=== PATIENT | female | born 1950 | race Caucasian/White ===

== ENCOUNTER → 2022-08-22 09:15 | Outpatient (BNVA) | payer MEDICARE, OTHER, SELFPAY | PROVIDERS: PCP Nurse Practitioner Family; Visit Provider Physician Assistant | DX: Z13.89 Encounter for screening for other disorder (principal) ==

== ENCOUNTER → 2022-09-14 10:31 | Outpatient (BNVA) | payer MEDICARE, OTHER, SELFPAY | PROVIDERS: PCP Nurse Practitioner Family; Referring Provider Nurse Practitioner Family; Visit Provider Physician Assistant | DX: E66.9 Obesity, unspecified (principal); E03.9 Hypothyroidism, unspecified; E78.00 Pure hypercholesterolemia, unspecified; F32.A Depression, unspecified; G25.0 Essential tremor; I12.9 Hypertensive chronic kidney disease with stage 1 through stage 4 chronic kidney disease, or unspecified chronic kidney disease; N18.30 Chronic kidney disease, stage 3 unspecified; Z98.84 Bariatric surgery status; Z68.38 Body mass index [BMI] 38.0-38.9, adult | CPT/HCPCS: 99202 ==

== ENCOUNTER 2022-09-20 10:41 | Outpatient (REF) | payer MEDICARE, OTHER, SELFPAY ==
--- NOTE | ~2022-09-20 | XR_ITS ---
EXAMINATION: XR CHEST CLINICAL INFORMATION: Obesity. COMPARISON: None TECHNIQUE: 2 views of the chest were obtained. FINDINGS: Reverse total bilateral shoulder arthroplasties. The lungs are well expanded. Linear left basilar atelectasis. No dense consolidation. No pleural effusion or pneumothorax. Normal heart size. XR/XR chest 2V IMPRESSION: Linear left basilar atelectasis. Otherwise clear lungs.
--- NOTE | 2022-09-20 10:54 | ECG_ITS ---
Test Reason : E66.9 Obesity Blood Pressure : / mmHG Vent. Rate : 071 BPM Atrial Rate : 071 BPM P-R Int : 222 ms QRS Dur : 086 ms QT Int : 414 ms P-R-T Axes : 041 -17 000 degrees QTc Int : 449 ms Sinus rhythm with 1st degree A-V block Low voltage QRS Borderline ECG No previous ECGs available Referred By: Phoebe Wills Electronically Signed By:MARIUM DIOR
[2022-09-20 11:11] LABS: MANUAL DIFF FLAG NO
[2022-09-20 11:25] LABS: Basophils Absolute Auto 0.1 X10*3/uL (0.0-0.2); Basophils Percent Auto 0.9 % (0-2); Eosinophils Absolute Auto 0.2 X10*3/uL (0.0-0.4); Hematocrit 42.3 % (37.0-47.0); Hemoglobin 13.9 g/dl (12.0-16.0); Imm Gran Abs Auto 0.06 X10*3/uL (0.00-0.03); Imm Gran Pct Auto 0.7 % (0.0-0.4); Lymphocytes Absolute Auto 1.6 X10*3/uL (1.2-4.9); Lymphocytes Percent Auto 20.2 % (20-40); Mean Corpuscular HGB Conc 32.9 g/dl (31.0-35.0); Mean Corpuscular Hemoglobin 27.6 pg (27.0-33.0); Mean Corpuscular Volume 83.9 fL (80.0-98.0); Mean Platelet Volume 9.5 fL (9.4-12.3); Monocytes Absolute Auto 0.5 X10*3/uL (0.1-1.2); Monocytes Percent Auto 6.5 % (2-11); Neutrophils Absolute Auto 5.5 x10*3/uL (2.0-8.3); Neutrophils Percent Auto 68.7 % (45-73); Platelet Count 268 X10*3/uL (160-400); Red Blood Count 5.04 X10*6/uL (4.20-5.50); Red Cell Distribution Width 13.3 % (11.0-16.0); White Blood Count 8.1 X10*3/uL (4.8-10.8)
[2022-09-20 11:55] LABS: Estimated Average Glucose 117 mg/dL; Hemoglobin A1c % 5.7 %
[2022-09-20 12:10] LABS: Alanine Aminotransferase 17 U/L (0-31); Albumin Level 4.2 g/dL (3.5-5.0); Alkaline Phosphatase 84 U/L (39-117); Anion Gap 16 (12-20); Aspartate Amino Transferase 22 U/L (5-31); Bilirubin Total 0.7 mg/dL (0.0-1.0); Blood Urea Nitrogen 49 mg/dL (9-16); Calcium 9.5 mg/dL (8.4-10.2); Carbon Dioxide 26 mmol/L (22-29); Chloride 102 mmol/L (96-108); Cholesterol 193 mg/dL; Estimated Glomerular Filt Rate 28; Glucose Random 114 mg/dL (60-115); HDL Cholesterol 48 mg/dL; Iron 64 mcg/dL (30-160); LDL Cholesterol Calculated 130 mg/dl; Percent Iron Saturation 19 % (15-50); Potassium 4.7 mmol/L (3.3-5.1); Sodium 139 mmol/L (135-145); Total Iron Binding Capacity 342 mcg/dL (228-428); Total Protein 7.2 g/dL (6.5-8.0); Triglycerides 76 mg/dL; Unsaturated Iron Binding 278 ug/dL
[2022-09-20 12:34] LABS: Ferritin 32 ng/mL (10-250); Folate 12.6 ng/mL (> or = 4.0); Insulin 23 uU/mL (2-29); TSH reflex Free T4 3.16 uIU/mL (0.32-4.0); Vitamin B12 419 pg/mL (200-900); Vitamin D 25-OH Total 17.8 ng/mL (>30)
[2022-09-22 13:19] LABS: Calcium (PTHI) 9.3 mg/dL (8.6-10.4); PTHI 168 pg/mL (16-77)
[2022-09-25 04:09] LABS: Vitamin A 64 mcg/dL (38-98)
[2022-09-26 01:08] LABS: Zinc 61 mcg/dL (60-130)
[2022-09-26 14:29] LABS: Vitamin B1 9 nmol/L (8-30)
== END 2022-09-20 10:42 | disposition home or self-care (01) ==
LOC: HO.XRAY 10:41
PROVIDERS: PCP Nurse Practitioner Family; Visit Provider Physician Assistant
DX: Z01.818 Encounter for other preprocedural examination (principal); E66.9 Obesity, unspecified
CPT/HCPCS: 36415; 71046; 80053; 80061; 82306; 82607; 82728; 82746; 83036; 83525; 83540; 83970; 84425; 84443; 84590; 84630; 85025; 86140; 93005

== ENCOUNTER → 2022-10-05 08:45 | Outpatient (BNVA) | payer MEDICARE, OTHER, SELFPAY | PROVIDERS: PCP Nurse Practitioner Family; Referring Provider Nurse Practitioner Family; Visit Provider Physician Assistant | DX: Z11.0 Encounter for screening for intestinal infectious diseases (principal); E66.01 Morbid (severe) obesity due to excess calories; Z68.37 Body mass index [BMI] 37.0-37.9, adult | CPT/HCPCS: 83013; 99211; 99212 ==

== ENCOUNTER 2022-10-05 17:18 | Outpatient (REF) | payer MEDICARE, OTHER, SELFPAY ==
[2022-10-06 13:46] LABS: H Pylori Breath Test Negative (Negative)
== END 2022-10-05 17:19 | disposition home or self-care (01) ==
LOC: HO.LNP 17:18
PROVIDERS: Visit Provider Physician Assistant
DX: Z13.89 Encounter for screening for other disorder (principal)
CPT/HCPCS: 83013

== ENCOUNTER → 2022-10-10 09:39 | Outpatient (BNVA) | payer MEDICARE, OTHER, SELFPAY | PROVIDERS: PCP Nurse Practitioner Family; Visit Provider Dietitian, Registered | DX: E66.9 Obesity, unspecified (principal); N18.30 Chronic kidney disease, stage 3 unspecified; Z98.84 Bariatric surgery status | CPT/HCPCS: 97802 ==

== ENCOUNTER → 2022-10-13 10:42 | Outpatient (REF) | payer MEDICARE, OTHER, SELFPAY ==
--- NOTE | 2022-10-13 10:48 | CA_ITS ---
Transthoracic Echocardiogram Patient (Last, First, Middle): Bibi Baez, Gender: Female Date of : 1950 Age: 72 Procedure Date: 10/13/2022 Procedure Type: Transthoracic Echocardiogram Location: OP Height: 160.02 cm Weight: 93.9 kg BSA: 1.96 m2 Heart Rate: 60 bpm BP: 138 / 64 mmHg Employment Trainer: SB Referring MD: Phoebe Wills PA-C Symptoms: I44.0 - Atrioventricular block, first degree Study Quality: Technically Difficult ECG Rhythm: Sinus Conclusions: - Normal left ventricular size, thickness, and systolic function. The visually estimated ejection fraction is between 55-60%. - Mildly increased right ventricular cavity size. There is moderately decreased right ventricular systolic function. Findings Procedure Information Contrast agent, definity, is being given per protocol without apparent complications. The quality of the study was technically difficult. The study quality is limited by patients body habitus. Left Ventricle Normal left ventricular size, thickness, and systolic function. The visually estimated ejection fraction is between 55-60%. There is no evidence of regional wall motion abnormalities. Diastolic function is normal for age. Right Ventricle Mildly increased right ventricular cavity size. There is moderately decreased right ventricular systolic function. Atria The left atrium is normal in size. Aortic Valve Normal aortic valve structure and function. There is no aortic valve stenosis. There is no aortic valve regurgitation. Mitral Valve The mitral valve appears normal. There is no mitral valve regurgitation. There is no mitral valve stenosis. Pulmonic Valve The pulmonic valve is likely normal. Tricuspid Valve Normal tricuspid valve structure and function. Tricuspid regurgitation envelope is inadequate for calculation of right ventricular systolic pressure. Normal right atrial pressure. Great Vessels All visible segments of the aorta are normal in size. Venous The inferior vena cava is normal in size and collapses greater than 50% with inspiration. Pericardium/Pleural There is no evidence of pericardial effusion. Prior Study Comparison No prior study available for comparison. Measurements 2D Linear Measurements LVIDd: 4.23 3.9-5.3/4.2-5.9 cm LVIDd Index: 2.16 2.4-3.2/2.2-3.1 cm/m2 LVIDs: 2.64 2.0-3.6 cm LVOT Diam: 2.10 3.0+(-)1.3 cm 2D Systolic Function EF 2C: 67.70 >55% Mitral Valve MV Pk E: 0.56 MV PK A: 0.61 MV Decel Time: 204.00 E/A: 0.90 E'Lateral: 9.46 E'Medial: 7.40 E/E' Med: 7.60 E/E' Lat: 5.90 PHT: 60.00 MVA PHT: 3.67 Decel Maverick: 2.75 Aortic Valve AoV Pk Sami: 1.34 AoV Pk Grad: 7.00 REX: 2.58 LVOT LVOT Pk Sami: 0.94 LVOT Mn Sami: 0.64 LVOT VTI: 0.18 LVOT Pk Grad: 4.00 LVOT Mn Grad: 2.00 LVOT Diam: 2.10 LVOT Area: 3.46 Diastolic Function MV Pk E: 0.56 MV Pk A: 0.61 E/A: 0.90 E'Medial: 7.40 E/E' Med: 7.60 E' Laterial: 9.46 E/E' Lat: 5.90 Right Ventricle TAPSE (mm): 14.10 TVS' Sami: 7.40 Tricuspid Valve RA Press: 3.00 Great Vessels Aorta Sinus of Valsalva: 3.20 2.0-3.5 cm Ao Asc: 3.20 2.1-3.4 cm Pulmonary Valve PV Pk Sami: 0.85 Peak PV Grad: 3.00 Updated in Other Vendor System with Status of Final Jaswinder Gallardo MD electronically signed on 10/16/2022 12:43:18 PM with status of Final
== END ==
LOC: HO.CARD 10:42
PROVIDERS: PCP Nurse Practitioner Family; Visit Provider Physician Assistant
DX: Z01.818 Encounter for other preprocedural examination (principal); E66.9 Obesity, unspecified; I44.0 Atrioventricular block, first degree
CPT/HCPCS: 93306; Q9957

== ENCOUNTER → 2022-10-25 08:43 | Outpatient (BNVA) | payer MEDICARE, OTHER, SELFPAY | PROVIDERS: PCP Nurse Practitioner Family; Visit Provider Physician Assistant | DX: E66.9 Obesity, unspecified (principal); K59.00 Constipation, unspecified; I44.0 Atrioventricular block, first degree; Z68.37 Body mass index [BMI] 37.0-37.9, adult | CPT/HCPCS: 99212 ==

== ENCOUNTER → 2022-10-30 09:09 | Outpatient (REF) | payer MEDICARE, OTHER, SELFPAY ==
--- NOTE | ~2022-10-30 | NM_ITS ---
Myocardial perfusion study Indication: Abnormal EKG to evaluate for myocardial ischemia Technique: The patient was brought in for a Lexiscan perfusion study on 10/30/2022. Patient performed low-level exercise and was injected 0.4 mg of Lexiscan intravenously. Within a minute of injection, 30 mCi of sestamibi was given intravenously. Images were obtained using the SPECT gamma camera interlaced with the gating device. Images were obtained in supine position. Resting perfusion study was performed on 10/31/2022. Patient was administered 30 mCi of sestamibi intravenously at rest. Images were then obtained in supine position. Images obtained with and without CT attenuation. Total DLP 193 mGy-cm. Images were processed with the software and compared side to side in short axis, horizontal long axis and vertical long axis views. Findings: The stress perfusion study showed non attenuated images show mildly reduced uptake in the basal inferolateral and basal inferior and basal septal wall of the LV myocardium. Attenuation corrected images show normal uptake of radiotracer in all segments of LV myocardium. There is suggestion of left ventricle hypertrophy. The gated study shows normal LV systolic function with calculated LVEF of 63%. LV cavity is normal in size. The gated study shows normal systolic wall thickening and contraction of segments. Resting study shows no change in perfusion pattern compared to stress perfusion. Gating at rest reveals normal systolic wall motion with ejection fraction at 60%. The findings are consistent with normal myocardial perfusion imaging. NM/NM giovanni perf SPECT rest & str Impression: 1. Myocardial perfusion imaging study shows normal myocardial perfusion 2. Gated LVEF is 63% 3. Transient ischemic dilatation not present EKG is nondiagnostic for ischemia
--- NOTE | 2022-10-30 09:11 | CA_ITS ---
Acquisition Time: 2022-10-30 10:03:51 Total Exercise Time: 00:02:00 Test Indications: ABN.EKG. SHORTNESS OF BREATH PRE Medications: SEE MED SHEET Protocol: LEXISCAN Max HR: 088 BPM 60% of Pred: 146 BPM Max BP: 116/066 mmHG Max Work Load: 1.0 METS Pharmacological stress test with Lexiscan injection while sitting and kicking their legs. Without anignal symptoms, without arrythmia, with normotensive response, with non-diagnositic EKG. In recovery reversed with Aminophylline 75mg IVP. Nuclear images pending. Test reviewed with Dr. Gallardo. Referred By: Phoebe Wills Overread By: JIMMY HALL
== END ==
LOC: HO.CARD 09:09
PROVIDERS: PCP Nurse Practitioner Family; Visit Provider Physician Assistant
DX: Z01.818 Encounter for other preprocedural examination (principal); E66.9 Obesity, unspecified; I44.0 Atrioventricular block, first degree; R06.02 Shortness of breath; R94.31 Abnormal electrocardiogram [ECG] [EKG]
CPT/HCPCS: 78452; 93017; A9500; J0280; J2785

== ENCOUNTER 2022-10-31 09:27 | Outpatient (REF) | payer MEDICARE, OTHER, SELFPAY ==
--- NOTE | ~2022-10-31 | FL_ITS ---
EXAMINATION: FL FLUOROSCOPY UPPER GI WITH AIR CLINICAL INFORMATION: Obesity. Previous lap band placement and removal. COMPARISON: None available. TECHNIQUE: Routine upper GI air-contrast study was performed in upright and lying position. FINDINGS: Following oral administration of thick barium there is normal propagation of bolus from the oral cavity through the pharynx into significant dilated distal esophagus. There is a high-grade narrowing or spasm seen at the GE junction resulting in very slow emptying of distal esophagus into stomach. A stricture or narrowing is suspected at this level. The exam was prolonged secondary to delayed emptying of esophageal barium. The stomach is small and contracted. The small bowel loops are unremarkable. FLUOROSCOPY TIME: 1.87 minutes. DOSE AREA PRODUCT: 30.487 uGy-m2 (microgray-meter squared) FL/FL upper GI w air IMPRESSION: Moderate narrowing or stricture suspected at the GE junction resulting in ballooning of the distal esophagus with oral contrast. Recommend endoscopy. The stomach is small and nondistended. Significant delay in the emptying of dilated esophagus into stomach was noted.
--- NOTE | ~2022-10-31 | US_ITS ---
EXAMINATION: US COMPLETE ABDOMEN WITH LIVER ELASTOGRAPHY CLINICAL INFORMATION: Obesity COMPARISON: None available. TECHNIQUE: Real-time imaging of the abdominal viscera. Noninvasive ultrasound liver fibrosis assessment is performed using Hanh ElastPQ point quantification shear wave elastography (2D-SWE) with a C5-2 MHz transducer. Multiple elastography samples are obtained. FINDINGS: PANCREAS: The pancreas is completely obscured by gas. ABDOMINAL AORTA: The distal abdominal aorta is normal caliber. The proximal and mid abdominal aorta are not visualized. INFERIOR VENA CAVA: Visualized portions are normal. LIVER: The liver demonstrates normal size, contour and increased echogenicity. No focal lesion or intrahepatic biliary duct dilatation. The right lobe measures 18.2 cm in length. The left lobe measures 11.1 cm in length. Portal flow is hepatopedal. Shear wave liver elastography median stiffness is 1.89 m/s (reference: normal median stiffness is 1.3 m/s or less). IQR/median stiffness to assess sampling precision is 0.11 (reference: good quality data set is IQR/median stiffness of 0.15 or less). GALLBLADDER: Normal. The gallbladder is physiologically distended without evidence of stones, sludge, polyps, wall thickening or pericholecystic fluid. COMMON BILE DUCT: Normal in caliber measuring 0.6 cm in diameter. RIGHT KIDNEY: Normal. No hydronephrosis. No renal calculi or focal parenchymal lesions. The kidney measures 7.7 cm in maximum dimension. LEFT KIDNEY: There is an anechoic cyst measuring 1.2 x 0.9 x 1.1 cm. No hydronephrosis. No renal calculi or focal parenchymal lesions. The kidney measures 6.7 cm in maximum dimension. SPLEEN: Normal. The spleen measures 10.3 cm in maximum dimension. FREE FLUID: None. US/US abdomen comp w elastography IMPRESSION: 1. Hepatic steatosis without focal lesion. 2. Simple cyst left kidney. Median liver stiffness measures 1.89 m/s corresponding to cACLD suggestive. REFERENCE: Society of Radiologists in Ultrasound Liver Stiffness Thresholds (2020): LIVER STIFFNESS THRESHOLDS: *Liver Stiffness equal or less than 1.3 m/s: High probability of being normal. *Liver Stiffness less than 1.7 m/s: In the absence of other known clinical signs, rules out compensated advanced chronic liver disease. *Liver Stiffness 1.7-2.1 m/s: Suggestive of compensated advanced chronic liver disease but need further test for confirmation. *Liver Stiffness over 2.1 m/s: Rules in compensated advanced chronic liver disease. *Liver Stiffness over 2.4 m/s: Suggestive of clinically significant portal hypertension. QUALITY OF DATA SET: *IQR/Median value equal or less than 0.15 implies a quality data set. *IQR/Median value over 0.15 implies a poor quality data set. SIGNIFICANT CHANGE FROM PRIOR EXAM: Significant change if liver stiffness measurement is 10% or greater from prior exam. OTHER CONSIDERATIONS: The stage of liver fibrosis may be overestimated in the setting of acute hepatitis, liver inflammation, elevated liver function tests, hepatic vascular congestion, obstructive cholestasis, non-fasting state, and infiltrative diseases such as amyloidosis and lymphoma. In some patients with NAFLD, the liver stiffness thresholds for compensated advanced chronic liver disease may be lower. In causes other than viral hepatitis and NAFLD, liver stiffness thresholds are not well established.
== END 2022-10-31 09:28 | disposition home or self-care (01) ==
LOC: HO.US 09:27
PROVIDERS: PCP Nurse Practitioner Family; Visit Provider Physician Assistant
DX: Z01.818 Encounter for other preprocedural examination (principal); E66.9 Obesity, unspecified; K21.9 Gastro-esophageal reflux disease without esophagitis
CPT/HCPCS: 74246; 76705; 76981